=== PATIENT | female | born 1950 | race Caucasian/White ===

== ENCOUNTER 2023-09-05 10:47 | Emergency (ER) | payer MEDICARE, MEDICAID, SELFPAY ==
[2023-09-05] VITALS (7 sets, daily range): BP systolic 92–109; BP diastolic 51–56; PULSE 47–57; RESP 16; TEMP 36.8; O2SAT 97–98; BMI 20.7
--- NOTE | 2023-09-05 11:02 | DI.CT.S_ITS ---
PROCEDURE: CT HEAD/BRAIN WO CON INDICATIONS: Fall onto gravel with facial abrasions on blood thinner TECHNIQUE: Noncontrast 4.5 mm thick angled axial sections acquired from the foramen magnum to the vertex, with coronal and sagittal reformats. For radiation dose reduction, the following was used: automated exposure control, adjustment of mA and/or kV according to patient size. COMPARISON: [facility], CT, CT HEAD WITHOUT CONTRAST, 05/10/2023, 20:41. FINDINGS: Image quality: Good CSF spaces: Basal cisterns are patent. Lateral ventricles are symmetric. Volume: Vascular calcifications. 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 Volume loss is present. These findings are Brain: No intracranial hemorrhage. Lomeli-white differentiation is grossly maintained. Craniofacial structures: No displaced fracture. Sinuses are clear. Orbits are intact. IMPRESSION: No acute intracranial pathology. Dictated by: Quan Frazier M.D. on 09/05/2023 at 11:27 Approved by: Quan Frazier M.D. on 09/05/2023 at 11:28
--- NOTE | 2023-09-05 11:02 | DI.CT.S_ITS ---
PROCEDURE: CT CERVICAL SPINE WO CON INDICATIONS: Fall onto gravel with facial abrasions on blood thinner TECHNIQUE: Noncontrast 3 mm thick sections acquired from the skull base to the T4 level. Sagittal and coronal reformats were then constructed. For radiation dose reduction, the following was used: automated exposure control, adjustment of mA and/or kV according to patient size. COMPARISON: [facility], CT, CT CERVICAL SPINE WITHOUT CONTRAST, 05/10/2023, 20:41. FINDINGS: Image quality: Good Bones: [id number] degenerative changes. Vertebral body heights are well maintained. No traumatic subluxation. Soft tissues: No pathologic prevertebral soft tissue swelling. No apical pneumothorax. Vascular calcifications. No thyroid nodules. IMPRESSION: No acute fracture or traumatic subluxation of the cervical spine. [id number] degenerative changes. If there is high concern for further derangement, consider MRI evaluation. Dictated by: Quan Frazier M.D. on 09/05/2023 at 11:29 Approved by: Quan Frazier M.D. on 09/05/2023 at 11:30
--- NOTE | 2023-09-05 11:40 | ED_ITS ---
HPI - Fall General Chief Complaint: Fall Stated Complaint: fall Time Seen by Provider: 09/05/23 11:02 Source: patient Mode of arrival: Ambulatory History of Present Illness HPI Narrative: 72-year-old female anticoagulated on Eliquis here with a ground level fall and head injury. Tripped over somebody dog struck the right side of her face. No loss of consciousness no vomiting did have a little bit of nausea which is now better. Does not have any numbness or weakness in her extremities no neck pain and no pain elsewhere. Related Data Allergies Allergy/AdvReac Type Severity Reaction Status Date / Time egg Allergy Verified 09/05/23 10:59 Patient History Social History Smoking Status: Former smoker Smoking Status: Former smoker Substance Use Type: does not use Exam Initial Vital Signs Initial Vital Signs: Vital Signs Temperature 98.2 F 09/05/23 10:51 Pulse Rate 57 L 09/05/23 10:51 Respiratory Rate 16 09/05/23 10:51 Blood Pressure 101/51 L 09/05/23 10:51 Pulse Oximetry 98 09/05/23 10:51 Oxygen Delivery Method Room Air 09/05/23 10:51 Const General: cooperative and No acute distress [facility] Other: There are abrasions to the right cheek and there is a small nonsuturable laceration just under the chin on the right side as well as an abrasion of the chin. There is no scalp hematoma. There is no tenderness of the skull there is no tenderness of the cervical spine. Pupils are equal round and reactive extraocular movements are intact no malocclusion or facial instability Eyes Pupils: PERRL EOM: EOM intact bilaterally Neck Neck: full ROM, supple and other (No midline tenderness or step-off) Chest Chest: normal inspection of the chest and normal palpation of entire chest wall Resp Effort & Inspection: normal respiratory effort Cardio Rate: regular rate Skin General: no rashes or lesions noted Neuro Cranial Nerves: CN's II-XI intact bilaterally Speech: speech normal Motor: muscle tone normal throughout and strength 5/5 throughout Extrem Other: No extremity tenderness Course Orders Ordered: ED Orders 09/05/23 11:02 CT cervical spine wo con Stat CT head/brain wo con Stat Vital Signs Vital signs: Vital Signs - 8 hr 09/05/23 10:51 Temperature 98.2 F Pulse Rate 57 L Respiratory Rate 16 Blood Pressure 101/51 L Pulse Oximetry 98 Oxygen Delivery Method Room Air MDM - Fall Imaging Data CT scan - head: My Impression: No acute injury on my independent review Radiologist's Impression: No acute CT - cervical spine: My Impression: Independently reviewed no acute fracture Radiologist's Impression: No acute fracture MDM Narrative Medical decision making narrative: 72-year-old female anticoagulated with a ground level fall and minor head injury. Mental status is intact. Imaging is negative for intracranial injury, imaging is negative for sudden spine injury, examination is otherwise reassuring. She is discharged home Discharge Plan Departure Patient Disposition: Home Clinical Impression: Head injury Qualifiers: Encounter type: initial encounter Qualified Code(s): S09.90XA - Unspecified injury of head, initial encounter Fall Qualifiers: Encounter type: initial encounter Qualified Code(s): W19.XXXA - Unspecified fall, initial encounter Chin laceration Qualifiers: Encounter type: initial encounter Qualified Code(s): S01.81XA - Laceration without foreign body of other part of head, initial encounter Instructions: How to Prevent Falls Activity Restrictions/Additional Instructions: Examination and imaging are reassuring today, it does not appear that you suffered a serious head injury. Since you are on a blood thinner, if you are having increasing headaches vomiting or unsteadiness you should return to the emergency department for a recheck. It is possible to have a delayed presentation of bleeding around the brain. May use Tylenol as needed for pain. We put Steri-Strips on your chin, leave this on until it peels off by itself. Referrals: Janine Hollingsworth, [employer] [Primary Care Provider] - Stand Alone Forms: Patient Portal/API
== END 2023-09-05 12:10 | disposition home or self-care (01) ==
PROVIDERS: Emergency Provider Emergency Medicine; PCP Nurse Practitioner
DX: S09.90XA Unspecified injury of head, initial encounter (principal); S01.81XA Laceration without foreign body of other part of head, initial encounter; Z79.01 Long term (current) use of anticoagulants; W01.10XA Fall on same level from slipping, tripping and stumbling with subsequent striking against unspecified object, initial encounter
CPT/HCPCS: 70450; 72125; 99281; 99283

== ENCOUNTER 2023-09-17 10:24 | Emergency (ER) | payer MEDICARE, MEDICAID, SELFPAY ==
[2023-09-17] VITALS (30 sets, daily range): BP systolic 86–182; BP diastolic 46–93; PULSE 43–100; RESP 12–28; TEMP 36.7; O2SAT 96–100; BMI 21.5
[2023-09-17 11:11] LABS: Add Manual Diff / Slide Review NO; Basophils Absolute Auto 0 /uL (0-100); Basophils Percent Auto 0.6 % (0-2); Eosinophils Absolute Auto 100 /uL (0-450); Eosinophils Percent Auto 1.7 % (2-4); Hematocrit 34.9 % (36-46); Hemoglobin 11.8 g/dL (12.0-16.0); Lymphocytes Absolute Auto 1000 /uL (1100-4500); Mean Corpuscular HGB Conc 33.8 % (30-36); Mean Corpuscular Hemoglobin 31.6 PG (26-34); Mean Corpuscular Volume 93.4 fL (80-100); Monocytes Absolute Auto 500 /uL (0-900); Monocytes Percent Auto 8.9 % (3-14); Neutrophils Absolute Auto 4400 /uL (1500-7000); Neutrophils Percent Auto 72.8 % (50-75); Platelet Count 215 X10^3/uL (150-400); Red Blood Cell Count 3.73 X10^6/uL (4.0-5.2); Red Cell Distribution Width 13.7 % (11.6-14.8); White Blood Cell Count 6.1 X10^3/uL (4.5-11.0)
--- NOTE | 2023-09-17 11:16 | ED_ITS ---
HPI - General Adult <Hemant Marin DO - Last Filed: 09/18/23 09:03> General Chief complaint: Toxicology Problem Stated complaint: sent over by PCP lithium toxicity Time Seen by Provider: 09/17/23 10:51 Source: patient Mode of arrival: Ambulatory History of Present Illness HPI narrative: 72-year-old female with history of bipolar, relatively recent suicidal attempt and hospitalization at [facility], prior myocardial infarction, hypertension, hyperlipidemia presents to the emergency department at the request of her primary care provider for evaluation of trouble with speech and ambulation for the past week. She is not activated as a code stroke as her symptoms have been going for about 1 week. She states that she has had trouble finding words not necessarily with slurring. Also she states that she has been stumbling when she walks and feels like the left side of her body might be more weak than the right. She was seen and evaluated here on September 05 with a fall resulting in a chin laceration and had normal imaging. She denies fever or chills, no nausea, vomiting or diarrhea, no change in medications or diet Related Data Home Medications Medication Instructions Recorded Confirmed apixaban 2.5 mg tablet (Eliquis) 2.5 mg PO BID 09/17/23 09/17/23 atorvastatin 10 mg tablet 5 mg PO DAILY 09/17/23 09/17/23 benztropine 1 mg tablet 1 mg PO 3XD 09/17/23 09/17/23 citalopram 20 mg tablet 20 mg PO DAILY 09/17/23 09/17/23 lithium carbonate 450 mg 900 mg PO ONCE PM 09/17/23 09/17/23 tablet,extended release losartan 25 mg tablet 12.5 mg PO DAILY 09/17/23 09/17/23 melatonin 5 mg tablet 5 mg PO ONCE PM PRN insomnia 09/17/23 09/17/23 olanzapine 10 mg tablet 10 mg PO ONCE PM 09/17/23 09/17/23 sennosides 8.6 mg tablet (senna) 17.2 mg PO BID 09/17/23 09/17/23 Allergies Allergy/AdvReac Type Severity Reaction Status Date / Time egg Allergy Verified 09/17/23 10:52 Review of Systems <DO Mingo Garcia Last Filed: 09/18/23 09:03> Review of Systems Narrative: GENERAL: See HPI HEENT: Denies sinus pain, ear pain, sore throat, difficulty swallowing, dizziness. RESPIRATORY: Denies dyspnea, cough, wheezing, hemoptysis, sputum. CARDIOVASCULAR: Denies chest pain, palpitations, orthopnea, edema, GASTROINTESTINAL: Denies nausea, vomiting, abdominal pain, diarrhea, constipation, melena. : Denies dysuria, frequency, incontinence, hematuria, urinary retention. MUSCULOSKELETAL: denies weakness, joint pain, or bony pain SKIN: Denies rash, skin lesions, or other NEUROLOGIC: See HPI PSYCHIATRIC: No concerning psychosocial issues. 12 point review of systems is negative except for those stated above Patient History <Hemant Marin DO - Last Filed: 09/18/23 09:03> Medical History (Updated 09/17/23 @ 18:45 by Mony Louis MD) Chronic anticoagulation HTN (hypertension) Bipolar 1 disorder Social History Smoking Status: Former smoker Smoking Status: Former smoker Substance Use Type: does not use Exam <Hemant Marin DO - Last Filed: 09/18/23 09:03> Narrative Exam Narrative: GENERAL: [72] year old patient appears stated age. Well-developed patient, in mild distress. HEAD: Atraumatic. Normocephalic. EYES: Pupils equal round and reactive. Extraocular motions intact. No scleral icterus. No injection or drainage. ENT: Nose without bleeding, purulent drainage. Throat without erythema, tonsillar hypertrophy or exudate. Airway patent. NECK: Trachea midline. Non tender CARDIOVASCULAR: Regular rate and rhythm without murmurs, gallops, or rubs. RESPIRATORY: Clear to auscultation. Breath sounds equal bilaterally. No wheezes, rales, or rhonchi. GASTROINTESTINAL: Abdomen soft, non-tender, nondistended. EXTREMITIES: No edema or joint tenderness. BACK: Nontender without deformity or crepitance. No flank tenderness. NEURO: AOx3. SKIN: No rash or erythema of visible areas Initial Vital Signs Initial Vital Signs: Vital Signs Temperature 98.0 F 09/17/23 10:46 Pulse Rate 50 L 09/17/23 10:46 Respiratory Rate 18 09/17/23 10:46 Blood Pressure 92/46 L 09/17/23 10:46 Pulse Oximetry 98 09/17/23 10:46 Oxygen Delivery Method Room Air 09/17/23 10:46 <Mony Louis MD - Last Filed: 09/19/23 04:37> Initial Vital Signs Initial Vital Signs: Vital Signs Temperature 98.0 F 09/17/23 10:46 Pulse Rate 50 L 09/17/23 10:46 Respiratory Rate 18 09/17/23 10:46 Blood Pressure 92/46 L 09/17/23 10:46 Pulse Oximetry 98 09/17/23 10:46 Oxygen Delivery Method Room Air 09/17/23 10:46 <Mony Antonio DO - Last Filed: 09/18/23 18:10> Initial Vital Signs Initial Vital Signs: Vital Signs Temperature 98.0 F 09/17/23 10:46 Pulse Rate 50 L 09/17/23 10:46 Respiratory Rate 18 09/17/23 10:46 Blood Pressure 92/46 L 09/17/23 10:46 Pulse Oximetry 98 09/17/23 10:46 Oxygen Delivery Method Room Air 09/17/23 10:46 Scores <Hemant aMrin DO - Last Filed: 09/18/23 09:03> NIH Stroke Scale Level of Conciousness: Alert, keenly responsive Ask month/age: Answers both questions correctly. Open/close eyes, close hand: Performs both tasks correctly Best gaze horizontal: Normal Visual briggs: No visual loss Facial palsy: Normal symetrical movement Left arm drift: No drift for full 10 sec Right arm drift: No drift for full 10 sec Left leg drift: No drift for full 5 sec Right leg drift: No drift for full 5 sec Limb ataxia: Present in one limb Sensory on face/arms/legs: Normal, no sensory loss Best language: Mild to moderate, slurs some words Dysarthria: Normal Extinction or inattention: No abnormality Total NIH Stroke scale score: 2 <Mony Louis MD - Last Filed: 09/19/23 04:37> NIH Stroke Scale Total NIH Stroke scale score: 2 <Mony Antonio DO - Last Filed: 09/18/23 18:10> NIH Stroke Scale Total NIH Stroke scale score: 2 Course <Hemant Marin DO - Last Filed: 09/18/23 09:03> Orders Ordered: Discontinued Medications Apixaban (Apixaban 5 Mg Tablet) 2.5 mg PO NOW ONE Stop: 09/17/23 18:22 Last Admin: 09/17/23 20:38 Dose: 2.5 mg Documented By: SABRINA Apixaban (Apixaban 5 Mg Tablet) 2.5 mg PO BID [facility] Last Admin: 09/18/23 22:15 Dose: 2.5 mg Documented By: Admin: 09/18/23 08:03 Dose: 2.5 mg Documented By: DOUG Atorvastatin Calcium (Atorvastatin 20 Mg Tablet) 5 mg PO NOW ONE Stop: 09/18/23 07:25 Last Admin: 09/18/23 08:03 Dose: 5 mg Documented By: DOUG Citalopram Hydrobromide (Citalopram 10 Mg Tablet) 20 mg PO NOW ONE Stop: 09/18/23 07:25 Last Admin: 09/18/23 08:03 Dose: 20 mg Documented By: DOUG Sodium Chloride (Normal Saline 0.9%) 1,000 mls @ 1,000 mls/hr IV BOLUS ONE Stop: 09/17/23 11:53 Last Infusion: 09/17/23 13:08 Dose: Infused Documented By: Admin: 09/17/23 12:08 Dose: 1,000 mls/hr Documented By: DOUG Sodium Chloride (Normal Saline 0.9%) 1,000 mls @ 1,000 mls/hr IV BOLUS ONE Stop: 09/17/23 23:34 Last Infusion: 09/17/23 23:48 Dose: Infused Documented By: Admin: 09/17/23 22:40 Dose: 1,000 mls/hr Documented By: SABRINA Olanzapine (Olanzapine 2.5 Mg Tablet) 10 mg PO BEDTIME [facility] Last Admin: 09/18/23 22:15 Dose: 10 mg Documented By: Admin: 09/17/23 20:41 Dose: 10 mg Documented By: SABRINA Sennosides (Sennosides 8.6 Mg Tablet) 8.6 mg PO BEDTIME [facility] Last Admin: 09/18/23 22:15 Dose: 8.6 mg Documented By: RENNY Thiamine HCl (Thiamine 100 Mg Tablet) 100 mg PO NOW ONE Stop: 09/18/23 12:41 Last Admin: 09/18/23 13:28 Dose: 100 mg Documented By: RENNY Vital Signs Vital signs: Vital Signs - 8 hr 09/18/23 21:00 12/07/23 21:00 09/18/23 22:00 Temperature Pulse Rate 57 L 90 Respiratory Rate 17 20 Blood Pressure 126/59 L Pulse Oximetry Oxygen Delivery Method 09/18/23 22:15 09/18/23 22:15 09/18/23 22:19 Temperature 98.4 F Pulse Rate 61 62 Respiratory Rate 16 Blood Pressure 150/70 H 150/70 H Pulse Oximetry 96 97 Oxygen Delivery Method Room Air 09/18/23 23:00 09/19/23 00:00 09/19/23 01:00 Temperature Pulse Rate 55 L 50 L 45 L Respiratory Rate 20 12 15 Blood Pressure 147/71 H Pulse Oximetry Oxygen Delivery Method 09/19/23 02:00 09/19/23 03:00 09/19/23 03:10 Temperature Pulse Rate 43 L 48 L Respiratory Rate 15 17 Blood Pressure 154/72 H Pulse Oximetry Oxygen Delivery Method 09/19/23 03:10 Temperature Pulse Rate 55 L Respiratory Rate 18 Blood Pressure Pulse Oximetry 98 Oxygen Delivery Method <Mony Louis MD - Last Filed: 09/19/23 04:37> Orders Ordered: Discontinued Medications Apixaban (Apixaban 5 Mg Tablet) 2.5 mg PO NOW ONE Stop: 09/17/23 18:22 Last Admin: 09/17/23 20:38 Dose: 2.5 mg Documented By: SABRINA Apixaban (Apixaban 5 Mg Tablet) 2.5 mg PO BID [facility] Last Admin: 09/18/23 22:15 Dose: 2.5 mg Documented By: Admin: 09/18/23 08:03 Dose: 2.5 mg Documented By: DOUG Atorvastatin Calcium (Atorvastatin 20 Mg Tablet) 5 mg PO NOW ONE Stop: 09/18/23 07:25 Last Admin: 09/18/23 08:03 Dose: 5 mg Documented By: DOUG Citalopram Hydrobromide (Citalopram 10 Mg Tablet) 20 mg PO NOW ONE Stop: 09/18/23 07:25 Last Admin: 09/18/23 08:03 Dose: 20 mg Documented By: DOUG Sodium Chloride (Normal Saline 0.9%) 1,000 mls @ 1,000 mls/hr IV BOLUS ONE Stop: 09/17/23 11:53 Last Infusion: 09/17/23 13:08 Dose: Infused Documented By: Admin: 09/17/23 12:08 Dose: 1,000 mls/hr Documented By: DOUG Sodium Chloride (Normal Saline 0.9%) 1,000 mls @ 1,000 mls/hr IV BOLUS ONE Stop: 09/17/23 23:34 Last Infusion: 09/17/23 23:48 Dose: Infused Documented By: Admin: 09/17/23 22:40 Dose: 1,000 mls/hr Documented By: SABRINA Olanzapine (Olanzapine 2.5 Mg Tablet) 10 mg PO BEDTIME [facility] Last Admin: 09/18/23 22:15 Dose: 10 mg Documented By: Admin: 09/17/23 20:41 Dose: 10 mg Documented By: SABRINA Sennosides (Sennosides 8.6 Mg Tablet) 8.6 mg PO BEDTIME [facility] Last Admin: 09/18/23 22:15 Dose: 8.6 mg Documented By: RENNY Thiamine HCl (Thiamine 100 Mg Tablet) 100 mg PO NOW ONE Stop: 09/18/23 12:41 Last Admin: 09/18/23 13:28 Dose: 100 mg Documented By: RENNY Vital Signs Vital signs: Vital Signs - 8 hr 09/18/23 21:00 09/18/23 21:00 09/18/23 22:00 Temperature Pulse Rate 57 L 90 Respiratory Rate 17 20 Blood Pressure 126/59 L Pulse Oximetry Oxygen Delivery Method 09/18/23 22:15 09/18/23 22:15 09/18/23 22:19 Temperature 98.4 F Pulse Rate 61 62 Respiratory Rate 16 Blood Pressure 150/70 H 150/70 H Pulse Oximetry 96 97 Oxygen Delivery Method Room Air 09/18/23 23:00 09/19/23 00:00 09/19/23 01:00 Temperature Pulse Rate 55 L 50 L 45 L Respiratory Rate 20 12 15 Blood Pressure 147/71 H Pulse Oximetry Oxygen Delivery Method 09/19/23 02:00 09/19/23 03:00 09/19/23 03:10 Temperature Pulse Rate 43 L 48 L Respiratory Rate 15 17 Blood Pressure 154/72 H Pulse Oximetry Oxygen Delivery Method 09/19/23 03:10 Temperature Pulse Rate 55 L Respiratory Rate 18 Blood Pressure Pulse Oximetry 98 Oxygen Delivery Method <Mony Antonio DO - Last Filed: 09/18/23 18:10> Orders Ordered: Discontinued Medications Apixaban (Apixaban 5 Mg Tablet) 2.5 mg PO NOW ONE Stop: 09/17/23 18:22 Last Admin: 09/17/23 20:38 Dose: 2.5 mg Documented By: SABRINA Apixaban (Apixaban 5 Mg Tablet) 2.5 mg PO BID [facility] Last Admin: 09/18/23 22:15 Dose: 2.5 mg Documented By: Admin: 09/18/23 08:03 Dose: 2.5 mg Documented By: DOUG Atorvastatin Calcium (Atorvastatin 20 Mg Tablet) 5 mg PO NOW ONE Stop: 09/18/23 07:25 Last Admin: 09/18/23 08:03 Dose: 5 mg Documented By: DOUG Citalopram Hydrobromide (Citalopram 10 Mg Tablet) 20 mg PO NOW ONE Stop: 09/18/23 07:25 Last Admin: 09/18/23 08:03 Dose: 20 mg Documented By: DOUG Sodium Chloride (Normal Saline 0.9%) 1,000 mls @ 1,000 mls/hr IV BOLUS ONE Stop: 09/17/23 11:53 Last Infusion: 09/17/23 13:08 Dose: Infused Documented By: Admin: 09/17/23 12:08 Dose: 1,000 mls/hr Documented By: DOUG Sodium Chloride (Normal Saline 0.9%) 1,000 mls @ 1,000 mls/hr IV BOLUS ONE Stop: 09/17/23 23:34 Last Infusion: 09/17/23 23:48 Dose: Infused Documented By: Admin: 09/17/23 22:40 Dose: 1,000 mls/hr Documented By: SABRINA Olanzapine (Olanzapine 2.5 Mg Tablet) 10 mg PO BEDTIME [facility] Last Admin: 09/18/23 22:15 Dose: 10 mg Documented By: Admin: 09/17/23 20:41 Dose: 10 mg Documented By: SABRINA Sennosides (Sennosides 8.6 Mg Tablet) 8.6 mg PO BEDTIME [facility] Last Admin: 09/18/23 22:15 Dose: 8.6 mg Documented By: RENNY Thiamine HCl (Thiamine 100 Mg Tablet) 100 mg PO NOW ONE Stop: 09/18/23 12:41 Last Admin: 09/18/23 13:28 Dose: 100 mg Documented By: RENNY Vital Signs Vital signs: Vital Signs - 8 hr 09/18/23 21:00 09/18/23 21:00 09/18/23 22:00 Temperature Pulse Rate 57 L 90 Respiratory Rate 17 20 Blood Pressure 126/59 L Pulse Oximetry Oxygen Delivery Method 09/18/23 22:15 09/18/23 22:15 09/18/23 22:19 Temperature 98.4 F Pulse Rate 61 62 Respiratory Rate 16 Blood Pressure 150/70 H 150/70 H Pulse Oximetry 96 97 Oxygen Delivery Method Room Air 09/18/23 23:00 09/19/23 00:00 09/19/23 01:00 Temperature Pulse Rate 55 L 50 L 45 L Respiratory Rate 20 12 15 Blood Pressure 147/71 H Pulse Oximetry Oxygen Delivery Method 09/19/23 02:00 09/19/23 03:00 09/19/23 03:10 Temperature Pulse Rate 43 L 48 L Respiratory Rate 15 17 Blood Pressure 154/72 H Pulse Oximetry Oxygen Delivery Method 09/19/23 03:10 Temperature Pulse Rate 55 L Respiratory Rate 18 Blood Pressure Pulse Oximetry 98 Oxygen Delivery Method Medical Decision Making <Hemant Marin, DO - Last Filed: 09/18/23 09:03> Lab Data 09/18/23 07:45 09/18/23 07:45 Labs: Lab Results 09/17/23 09/17/23 09/17/23 Range/Units 11:00 12:10 13:24 WBC 6.1 (4.5-11.0) X10^3/uL RBC 3.73 L (4.0-5.2) X10^6/uL Hgb 11.8 L (12.0-16.0) g/dL Hct 34.9 L (36-46) % MCV 93.4 (80-100) fL MCH 31.6 (26-34) PG MCHC 33.8 (30-36) % RDW 13.7 (11.6-14.8) % Plt Count 215 (150-400) X10^3/uL Neut % (Auto) 72.8 (50-75) % Lymph % (Auto) 16.0 L (25-40) % [place] % (Auto) 8.9 (3-14) % Eos % (Auto) 1.7 L (2-4) % Baso % (Auto) 0.6 (0-2) % Neut # (Auto) 4400 (1756-7254) /uL Lymph # (Auto) 1000 L (5442-4128) /uL [place] # (Auto) 500 (0-900) /uL Eos # (Auto) 100 (0-450) /uL Baso # (Auto) 0 (0-100) /uL Sodium 135 L (137-145) mmol/L Potassium 4.6 (3.4-5.1) mmol/L Chloride 108 H (98-107) mmol/L Carbon Dioxide 22 (22-32) mmol/L BUN 18 H (7-17) mg/dL Creatinine 0.82 (0.52-1.04) mg/dL Estimated GFR > 60 (>60) mL/min BUN/Creatinine Ratio 22.0 (6-22) Glucose 92 (80-110) mg/dL Calcium 9.6 (8.4-10.2) mg/dL Magnesium 2.4 H (1.6-2.3) mg/dL Total Bilirubin 0.6 (0.2-1.3) mg/dL AST 47 H (14-36) IU/L ALT 60 H (<35) IU/L Alkaline Phosphatase 121 (38-126) U/L Total Creatine Kinase (30-135) U/L Total Protein 6.9 (6.3-8.2) g/dL Albumin 3.9 (3.5-5.0) g/dL Globulin 3.0 (1.7-4.1) g/dL Albumin/Globulin Ratio 1.3 (1.0-2.8) Vitamin B12 (239-931) pg/mL TSH (0.47-4.68) uIU/mL Urine Color Yellow Urine Appearance Clear Urine pH 6.5 (4.5-8.0) Ur Specific [place] <=1.005 (1.000-1.035) Urine Protein Negative (Negative) Urine Glucose (UA) Negative (Negative) g/dL Urine Ketones Negative (NEGATIVE) Urine Occult Blood Negative (Negative) Urine Nitrate Negative (Negative) Urine Bilirubin Negative (NEGATIVE) Urine Urobilinogen 1.0 (0.2) E.U./dL Ur Leukocyte Esterase Negative (NEGATIVE) Urine RBC None seen (0-5/HPF) Urine WBC None seen (0-5/HPF) Ur Squamous Epith Cells 0-1 /hpf (0-5/HPF) Urine Bacteria None seen (None) Ur Culture Indicated? Cult not indicated Salicylates < 1.0 (<20) mg/dL U Opiates 300ng/mL cut Negative (Negative) Ur Oxycodone Screen Negative (Negative) Urine Methadone Screen Negative (Negative) Ur Barbiturates Screen Negative (Negative) U Tricyclic Antidepress Negative (Negative) Ur Phencyclidine Scrn Negative (Negative) Ur Amphetamines Screen Negative (Negative) U Methamphetamines Scrn Negative (Negative) Ur MDMA Scrn (Ecstasy) Negative (Negative) U Benzodiazepines Scrn Negative (Negative) [place] 1.5 H (0.6-1.2) mmol/L Urine Cocaine Screen Negative (Negative) U Marijuana (THC) Screen Negative (Negative) Ethyl Alcohol < 10 ( - 10) mg/dL 09/18/23 Range/Units 07:45 WBC 5.7 (4.5-11.0) X10^3/uL RBC 3.64 L (4.0-5.2) X10^6/uL Hgb 11.5 L (12.0-16.0) g/dL Hct 34.2 L (36-46) % MCV 94.0 (80-100) fL MCH 31.7 (26-34) PG MCHC 33.7 (30-36) % RDW 14.3 (11.6-14.8) % Plt Count 204 (150-400) X10^3/uL Neut % (Auto) 63.1 (50-75) % Lymph % (Auto) 24.2 L (25-40) % [place] % (Auto) 9.5 (3-14) % Eos % (Auto) 2.5 (2-4) % Baso % (Auto) 0.7 (0-2) % Neut # (Auto) 3600 (9395-6229) /uL Lymph # (Auto) 1400 (3646-5061) /uL [place] # (Auto) 500 (0-900) /uL Eos # (Auto) 100 (0-450) /uL Baso # (Auto) 0 (0-100) /uL Sodium 138 (137-145) mmol/L Potassium 4.7 (3.4-5.1) mmol/L Chloride 111 H (98-107) mmol/L Carbon Dioxide 22 (22-32) mmol/L BUN 14 (7-17) mg/dL Creatinine 0.82 (0.52-1.04) mg/dL Estimated GFR > 60 (>60) mL/min BUN/Creatinine Ratio 17.1 (6-22) Glucose 104 (80-110) mg/dL Calcium 9.3 (8.4-10.2) mg/dL Magnesium 2.3 (1.6-2.3) mg/dL Total Bilirubin 0.7 (0.2-1.3) mg/dL AST 38 H (14-36) IU/L ALT 52 H (<35) IU/L Alkaline Phosphatase 124 (38-126) U/L Total Creatine Kinase 47 (30-135) U/L Total Protein 6.3 (6.3-8.2) g/dL Albumin 3.5 (3.5-5.0) g/dL Globulin 2.8 (1.7-4.1) g/dL Albumin/Globulin Ratio 1.3 (1.0-2.8) Vitamin B12 557 (239-931) pg/mL TSH 4.07 (0.47-4.68) uIU/mL Urine Color Urine Appearance Urine pH (4.5-8.0) Ur Specific [place] (1.000-1.035) Urine Protein (Negative) Urine Glucose (UA) (Negative) g/dL Urine Ketones (NEGATIVE) Urine Occult Blood (Negative) Urine Nitrate (Negative) Urine Bilirubin (NEGATIVE) Urine Urobilinogen (0.2) E.U./dL Ur Leukocyte Esterase (NEGATIVE) Urine RBC (0-5/HPF) Urine WBC (0-5/HPF) Ur Squamous Epith Cells (0-5/HPF) Urine Bacteria (None) Ur Culture Indicated? Salicylates (<20) mg/dL U Opiates 300ng/mL cut (Negative) Ur Oxycodone Screen (Negative) Urine Methadone Screen (Negative) Ur Barbiturates Screen (Negative) U Tricyclic Antidepress (Negative) Ur Phencyclidine Scrn (Negative) Ur Amphetamines Screen (Negative) U Methamphetamines Scrn (Negative) Ur MDMA Scrn (Ecstasy) (Negative) U Benzodiazepines Scrn (Negative) [place] 1.1 (0.6-1.2) mmol/L Urine Cocaine Screen (Negative) U Marijuana (THC) Screen (Negative) Ethyl Alcohol ( - 10) mg/dL MDM Narrative Medical decision making narrative: CC: 72-year-old female with shuffling gait, ataxia trouble with speech Complicating co-morbidities: Bipolar, recent hospitalization Data collected from: Patient Medical records reviewed: Prior notes reviewed in our EMR Differential considered, but not limited to: Stroke versus metabolic or toxic encephalopathy versus other Exam documented above, pertinent findings include: Alert and oriented, expressive aphasia, mild resting tremor Lab Test results independently reviewed as above. Pertinent findings: No leukocytosis or left shift, minimal elevation in LFTs, AST 47, ALT 60, urine without signs of infection, U tox pending, lithium 1.5 Independently reviewed EKG as above Imaging studies independently reviewed: CT of the head, CTA head and neck, MRI all without significant acute findings Scores Used: NIHSS 2 Consultations: discussed in depth with hospitalist who has reviewed clinical course and recent hospitalization, also contact with local psych. Both recommend admission at [facility] given continuity of care and greater access to psychiatry 09/18/23 0700 - Patient monitored overnight, no events noted. No available beds at [facility] overnight but reported hopeful there will be an availability in the [facility]. Care signed to Dr. Antonio at 0700 <Mony Louis MD - Last Filed: 09/19/23 04:37> Lab Data Labs: Lab Results 09/17/23 09/17/23 09/17/23 Range/Units 11:00 12:10 13:24 WBC 6.1 (4.5-11.0) X10^3/uL RBC 3.73 L (4.0-5.2) X10^6/uL Hgb 11.8 L (12.0-16.0) g/dL Hct 34.9 L (36-46) % MCV 93.4 (80-100) fL MCH 31.6 (26-34) PG MCHC 33.8 (30-36) % RDW 13.7 (11.6-14.8) % Plt Count 215 (150-400) X10^3/uL Neut % (Auto) 72.8 (50-75) % Lymph % (Auto) 16.0 L (25-40) % [place] % (Auto) 8.9 (3-14) % Eos % (Auto) 1.7 L (2-4) % Baso % (Auto) 0.6 (0-2) % Neut # (Auto) 4400 (1389-0528) /uL Lymph # (Auto) 1000 L (8635-1335) /uL [place] # (Auto) 500 (0-900) /uL Eos # (Auto) 100 (0-450) /uL Baso # (Auto) 0 (0-100) /uL Sodium 135 L (137-145) mmol/L Potassium 4.6 (3.4-5.1) mmol/L Chloride 108 H (98-107) mmol/L Carbon Dioxide 22 (22-32) mmol/L BUN 18 H (7-17) mg/dL Creatinine 0.82 (0.52-1.04) mg/dL Estimated GFR > 60 (>60) mL/min BUN/Creatinine Ratio 22.0 (6-22) Glucose 92 (80-110) mg/dL Calcium 9.6 (8.4-10.2) mg/dL Magnesium 2.4 H (1.6-2.3) mg/dL Total Bilirubin 0.6 (0.2-1.3) mg/dL AST 47 H (14-36) IU/L ALT 60 H (<35) IU/L Alkaline Phosphatase 121 (38-126) U/L Total Creatine Kinase (30-135) U/L Total Protein 6.9 (6.3-8.2) g/dL Albumin 3.9 (3.5-5.0) g/dL Globulin 3.0 (1.7-4.1) g/dL Albumin/Globulin Ratio 1.3 (1.0-2.8) Vitamin B12 (239-931) pg/mL TSH (0.47-4.68) uIU/mL Urine Color Yellow Urine Appearance Clear Urine pH 6.5 (4.5-8.0) Ur Specific [place] <=1.005 (1.000-1.035) Urine Protein Negative (Negative) Urine Glucose (UA) Negative (Negative) g/dL Urine Ketones Negative (NEGATIVE) Urine Occult Blood Negative (Negative) Urine Nitrate Negative (Negative) Urine Bilirubin Negative (NEGATIVE) Urine Urobilinogen 1.0 (0.2) E.U./dL Ur Leukocyte Esterase Negative (NEGATIVE) Urine RBC None seen (0-5/HPF) Urine WBC None seen (0-5/HPF) Ur Squamous Epith Cells 0-1 /hpf (0-5/HPF) Urine Bacteria None seen (None) Ur Culture Indicated? Cult not indicated Salicylates < 1.0 (<20) mg/dL U Opiates 300ng/mL cut Negative (Negative) Ur Oxycodone Screen Negative (Negative) Urine Methadone Screen Negative (Negative) Ur Barbiturates Screen Negative (Negative) U Tricyclic Antidepress Negative (Negative) Ur Phencyclidine Scrn Negative (Negative) Ur Amphetamines Screen Negative (Negative) U Methamphetamines Scrn Negative (Negative) Ur MDMA Scrn (Ecstasy) Negative (Negative) U Benzodiazepines Scrn Negative (Negative) [place] 1.5 H (0.6-1.2) mmol/L Urine Cocaine Screen Negative (Negative) U Marijuana (THC) Screen Negative (Negative) Ethyl Alcohol < 10 ( - 10) mg/dL 09/18/23 Range/Units 07:45 WBC 5.7 (4.5-11.0) X10^3/uL RBC 3.64 L (4.0-5.2) X10^6/uL Hgb 11.5 L (12.0-16.0) g/dL Hct 34.2 L (36-46) % MCV 94.0 (80-100) fL MCH 31.7 (26-34) PG MCHC 33.7 (30-36) % RDW 14.3 (11.6-14.8) % Plt Count 204 (150-400) X10^3/uL Neut % (Auto) 63.1 (50-75) % Lymph % (Auto) 24.2 L (25-40) % [place] % (Auto) 9.5 (3-14) % Eos % (Auto) 2.5 (2-4) % Baso % (Auto) 0.7 (0-2) % Neut # (Auto) 3600 (0011-7333) /uL Lymph # (Auto) 1400 (6513-4188) /uL [place] # (Auto) 500 (0-900) /uL Eos # (Auto) 100 (0-450) /uL Baso # (Auto) 0 (0-100) /uL Sodium 138 (137-145) mmol/L Potassium 4.7 (3.4-5.1) mmol/L Chloride 111 H (98-107) mmol/L Carbon Dioxide 22 (22-32) mmol/L BUN 14 (7-17) mg/dL Creatinine 0.82 (0.52-1.04) mg/dL Estimated GFR > 60 (>60) mL/min BUN/Creatinine Ratio 17.1 (6-22) Glucose 104 (80-110) mg/dL Calcium 9.3 (8.4-10.2) mg/dL Magnesium 2.3 (1.6-2.3) mg/dL Total Bilirubin 0.7 (0.2-1.3) mg/dL AST 38 H (14-36) IU/L ALT 52 H (<35) IU/L Alkaline Phosphatase 124 (38-126) U/L Total Creatine Kinase 47 (30-135) U/L Total Protein 6.3 (6.3-8.2) g/dL Albumin 3.5 (3.5-5.0) g/dL Globulin 2.8 (1.7-4.1) g/dL Albumin/Globulin Ratio 1.3 (1.0-2.8) Vitamin B12 557 (239-931) pg/mL TSH 4.07 (0.47-4.68) uIU/mL Urine Color Urine Appearance Urine pH (4.5-8.0) Ur Specific [place] (1.000-1.035) Urine Protein (Negative) Urine Glucose (UA) (Negative) g/dL Urine Ketones (NEGATIVE) Urine Occult Blood (Negative) Urine Nitrate (Negative) Urine Bilirubin (NEGATIVE) Urine Urobilinogen (0.2) E.U./dL Ur Leukocyte Esterase (NEGATIVE) Urine RBC (0-5/HPF) Urine WBC (0-5/HPF) Ur Squamous Epith Cells (0-5/HPF) Urine Bacteria (None) Ur Culture Indicated? Salicylates (<20) mg/dL U Opiates 300ng/mL cut (Negative) Ur Oxycodone Screen (Negative) Urine Methadone Screen (Negative) Ur Barbiturates Screen (Negative) U Tricyclic Antidepress (Negative) Ur Phencyclidine Scrn (Negative) Ur Amphetamines Screen (Negative) U Methamphetamines Scrn (Negative) Ur MDMA Scrn (Ecstasy) (Negative) U Benzodiazepines Scrn (Negative) [place] 1.1 (0.6-1.2) mmol/L Urine Cocaine Screen (Negative) U Marijuana (THC) Screen (Negative) Ethyl Alcohol ( - 10) mg/dL MDM Narrative Medical decision making narrative: CC: 72-year-old female with shuffling gait, ataxia trouble with speech Complicating co-morbidities: Bipolar, recent hospitalization Data collected from: Patient Medical records reviewed: Prior notes reviewed in our EMR Differential considered, but not limited to: Stroke versus metabolic or toxic encephalopathy versus other Exam documented above, pertinent findings include: Alert and oriented, expressive aphasia, mild resting tremor Lab Test results independently reviewed as above. Pertinent findings: No leukocytosis or left shift, minimal elevation in LFTs, AST 47, ALT 60, urine without signs of infection, U tox pending, lithium 1.5 Independently reviewed EKG as above Imaging studies independently reviewed: CT of the head, CTA head and neck, MRI all without significant acute findings Scores Used: NIHSS 2 Consultations: discussed in depth with hospitalist who has reviewed clinical course and recent hospitalization, also contact with local psych. Both recommend admission at [facility] given continuity of care and greater access to psychiatry 09/18/23 0700 - Patient monitored overnight, no events noted. No available beds at [facility] overnight but reported hopeful there will be an availability in the [facility]. Care signed to Dr. Antonio at 0700 09/18/23 Paco: Patient signed out to myself by Dr. Louis. Patient seen independently evaluated by myself alert oriented expressive aphasia and mild tremor on examination. Patient's labs and imaging were reviewed patient had negative MRI, NIH of 2. Patient does have psychiatric history lithium was mildly elevated at 1.5. Labs were repeated today are overall stable and lithium is decreased from 1.5-1.1 with liver enzymes very mildly elevated yesterday decreased today. Patient does not have any additional complaints currently her lithium dose was held but she did receive her morning medications. Plan at this time is for patient to be transferred for facility with psych and Neurology for further evaluation. Recommendation was for [facility] for continuity of care. [facility] has not had any availability. Calls were made out to other facilities. Spoke with Neurology at [facility] feels patient is appropriate for transfer notes that lithium toxicity can be little bit delayed and she was elevated in the 2 range 15 of September. He does recommend continue hold lithium, add on TSH and B12 and CK level to evaluate for any potential seizure as well as give thiamine 100 mg. Recommends plan for EEG which we do not have available here and neuro checks q.4 to evaluate for any seizure activity. They do note that if her mentation clears completely may change plan to be more outpatient but if she is having persistent symptoms plan to continue with transfer. Spoke with hospitalist, Dr. Garcia at [facility] reviewed findings workup thus far and the recommendations from neurology. Accepts for transfer. They state unlikely to have a bed today. Patient signed out to Dr. Louis while awaiting bed assignment. Patient has not had any events today. 09/19/23 (Heriberto) -care of patient is signed out to me by outgoing provider. No events overnight, bed became available at [facility] and she was transported via BLS service to outside hospital in stable condition. <Mony Antonio DO - Last Filed: 09/18/23 18:10> Lab Data Labs: Lab Results 09/17/23 09/17/23 09/17/23 Range/Units 11:00 12:10 13:24 WBC 6.1 (4.5-11.0) X10^3/uL RBC 3.73 L (4.0-5.2) X10^6/uL Hgb 11.8 L (12.0-16.0) g/dL Hct 34.9 L (36-46) % MCV 93.4 (80-100) fL MCH 31.6 (26-34) PG MCHC 33.8 (30-36) % RDW 13.7 (11.6-14.8) % Plt Count 215 (150-400) X10^3/uL Neut % (Auto) 72.8 (50-75) % Lymph % (Auto) 16.0 L (25-40) % [place] % (Auto) 8.9 (3-14) % Eos % (Auto) 1.7 L (2-4) % Baso % (Auto) 0.6 (0-2) % Neut # (Auto) 4400 (7257-0035) /uL Lymph # (Auto) 1000 L (5531-6152) /uL [place] # (Auto) 500 (0-900) /uL Eos # (Auto) 100 (0-450) /uL Baso # (Auto) 0 (0-100) /uL Sodium 135 L (137-145) mmol/L Potassium 4.6 (3.4-5.1) mmol/L Chloride 108 H (98-107) mmol/L Carbon Dioxide 22 (22-32) mmol/L BUN 18 H (7-17) mg/dL Creatinine 0.82 (0.52-1.04) mg/dL Estimated GFR > 60 (>60) mL/min BUN/Creatinine Ratio 22.0 (6-22) Glucose 92 (80-110) mg/dL Calcium 9.6 (8.4-10.2) mg/dL Magnesium 2.4 H (1.6-2.3) mg/dL Total Bilirubin 0.6 (0.2-1.3) mg/dL AST 47 H (14-36) IU/L ALT 60 H (<35) IU/L Alkaline Phosphatase 121 (38-126) U/L Total Creatine Kinase (30-135) U/L Total Protein 6.9 (6.3-8.2) g/dL Albumin 3.9 (3.5-5.0) g/dL Globulin 3.0 (1.7-4.1) g/dL Albumin/Globulin Ratio 1.3 (1.0-2.8) Vitamin B12 (239-931) pg/mL TSH (0.47-4.68) uIU/mL Urine Color Yellow Urine Appearance Clear Urine pH 6.5 (4.5-8.0) Ur Specific [place] <=1.005 (1.000-1.035) Urine Protein Negative (Negative) Urine Glucose (UA) Negative (Negative) g/dL Urine Ketones Negative (NEGATIVE) Urine Occult Blood Negative (Negative) Urine Nitrate Negative (Negative) Urine Bilirubin Negative (NEGATIVE) Urine Urobilinogen 1.0 (0.2) E.U./dL Ur Leukocyte Esterase Negative (NEGATIVE) Urine RBC None seen (0-5/HPF) Urine WBC None seen (0-5/HPF) Ur Squamous Epith Cells 0-1 /hpf (0-5/HPF) Urine Bacteria None seen (None) Ur Culture Indicated? Cult not indicated Salicylates < 1.0 (<20) mg/dL U Opiates 300ng/mL cut Negative (Negative) Ur Oxycodone Screen Negative (Negative) Urine Methadone Screen Negative (Negative) Ur Barbiturates Screen Negative (Negative) U Tricyclic Antidepress Negative (Negative) Ur Phencyclidine Scrn Negative (Negative) Ur Amphetamines Screen Negative (Negative) U Methamphetamines Scrn Negative (Negative) Ur MDMA Scrn (Ecstasy) Negative (Negative) U Benzodiazepines Scrn Negative (Negative) [place] 1.5 H (0.6-1.2) mmol/L Urine Cocaine Screen Negative (Negative) U Marijuana (THC) Screen Negative (Negative) Ethyl Alcohol < 10 ( - 10) mg/dL 09/18/23 Range/Units 07:45 WBC 5.7 (4.5-11.0) X10^3/uL RBC 3.64 L (4.0-5.2) X10^6/uL Hgb 11.5 L (12.0-16.0) g/dL Hct 34.2 L (36-46) % MCV 94.0 (80-100) fL MCH 31.7 (26-34) PG MCHC 33.7 (30-36) % RDW 14.3 (11.6-14.8) % Plt Count 204 (150-400) X10^3/uL Neut % (Auto) 63.1 (50-75) % Lymph % (Auto) 24.2 L (25-40) % [place] % (Auto) 9.5 (3-14) % Eos % (Auto) 2.5 (2-4) % Baso % (Auto) 0.7 (0-2) % Neut # (Auto) 3600 (0867-6032) /uL Lymph # (Auto) 1400 (2697-5877) /uL [place] # (Auto) 500 (0-900) /uL Eos # (Auto) 100 (0-450) /uL Baso # (Auto) 0 (0-100) /uL Sodium 138 (137-145) mmol/L Potassium 4.7 (3.4-5.1) mmol/L Chloride 111 H (98-107) mmol/L Carbon Dioxide 22 (22-32) mmol/L BUN 14 (7-17) mg/dL Creatinine 0.82 (0.52-1.04) mg/dL Estimated GFR > 60 (>60) mL/min BUN/Creatinine Ratio 17.1 (6-22) Glucose 104 (80-110) mg/dL Calcium 9.3 (8.4-10.2) mg/dL Magnesium 2.3 (1.6-2.3) mg/dL Total Bilirubin 0.7 (0.2-1.3) mg/dL AST 38 H (14-36) IU/L ALT 52 H (<35) IU/L Alkaline Phosphatase 124 (38-126) U/L Total Creatine Kinase 47 (30-135) U/L Total Protein 6.3 (6.3-8.2) g/dL Albumin 3.5 (3.5-5.0) g/dL Globulin 2.8 (1.7-4.1) g/dL Albumin/Globulin Ratio 1.3 (1.0-2.8) Vitamin B12 557 (239-931) pg/mL TSH 4.07 (0.47-4.68) uIU/mL Urine Color Urine Appearance Urine pH (4.5-8.0) Ur Specific [place] (1.000-1.035) Urine Protein (Negative) Urine Glucose (UA) (Negative) g/dL Urine Ketones (NEGATIVE) Urine Occult Blood (Negative) Urine Nitrate (Negative) Urine Bilirubin (NEGATIVE) Urine Urobilinogen (0.2) E.U./dL Ur Leukocyte Esterase (NEGATIVE) Urine RBC (0-5/HPF) Urine WBC (0-5/HPF) Ur Squamous Epith Cells (0-5/HPF) Urine Bacteria (None) Ur Culture Indicated? Salicylates (<20) mg/dL U Opiates 300ng/mL cut (Negative) Ur Oxycodone Screen (Negative) Urine Methadone Screen (Negative) Ur Barbiturates Screen (Negative) U Tricyclic Antidepress (Negative) Ur Phencyclidine Scrn (Negative) Ur Amphetamines Screen (Negative) U Methamphetamines Scrn (Negative) Ur MDMA Scrn (Ecstasy) (Negative) U Benzodiazepines Scrn (Negative) [place] 1.1 (0.6-1.2) mmol/L Urine Cocaine Screen (Negative) U Marijuana (THC) Screen (Negative) Ethyl Alcohol ( - 10) mg/dL MDM Narrative Medical decision making narrative: CC: 72-year-old female with shuffling gait, ataxia trouble with speech Complicating co-morbidities: Bipolar, recent hospitalization Data collected from: Patient Medical records reviewed: Prior notes reviewed in our EMR Differential considered, but not limited to: Stroke versus metabolic or toxic encephalopathy versus other Exam documented above, pertinent findings include: Alert and oriented, expressive aphasia, mild resting tremor Lab Test results independently reviewed as above. Pertinent findings: No leukocytosis or left shift, minimal elevation in LFTs, AST 47, ALT 60, urine without signs of infection, U tox pending, lithium 1.5 Independently reviewed EKG as above Imaging studies independently reviewed: CT of the head, CTA head and neck, MRI all without significant acute findings Scores Used: NIHSS 2 Consultations: discussed in depth with hospitalist who has reviewed clinical course and recent hospitalization, also contact with local psych. Both recommend admission at [facility] given continuity of care and greater access to psychiatry 09/18/23 0700 - Patient monitored overnight, no events noted. No available beds at [facility] overnight but reported hopeful there will be an availability in the [facility]. Care signed to Dr. Antonio at 0700 09/18/23 [place]: Patient signed out to myself by Dr. Louis. Patient seen independently evaluated by myself alert oriented expressive aphasia and mild tremor on examination. Patient's labs and imaging were reviewed patient had negative MRI, NIH of 2. Patient does have psychiatric history lithium was mildly elevated at 1.5. Labs were repeated today are overall stable and lithium is decreased from 1.5-1.1 with liver enzymes very mildly elevated yesterday decreased today. Patient does not have any additional complaints currently her lithium dose was held but she did receive her morning medications. Plan at this time is for patient to be transferred for facility with psych and Neurology for further evaluation. Recommendation was for [facility] for continuity of care. [facility] has not had any availability. Calls were made out to other facilities. Spoke with Neurology at [facility] feels patient is appropriate for transfer notes that lithium toxicity can be little bit delayed and she was elevated in the 2 range 15 of September. He does recommend continue hold lithium, add on TSH and B12 and CK level to evaluate for any potential seizure as well as give thiamine 100 mg. Recommends plan for EEG which we do not have available here and neuro checks q.4 to evaluate for any seizure activity. They do note that if her mentation clears completely may change plan to be more outpatient but if she is having persistent symptoms plan to continue with transfer. Spoke with hospitalist, Dr. Gracia at [facility] reviewed findings workup thus far and the recommendations from neurology. Accepts for transfer. They state unlikely to have a bed today. Patient signed out to Dr. Louis while awaiting bed assignment. Patient has not had any events today. Discharge Plan Departure Patient Disposition: [facility] Clinical Impression: Slurred speech, Word finding difficulty Prescriptions: No Action atorvastatin 10 mg tablet 5 mg PO DAILY benztropine 1 mg tablet 1 mg PO 3XD sennosides [senna] 8.6 mg tablet 17.2 mg PO BID olanzapine 10 mg tablet 10 mg PO ONCE PM lithium carbonate 450 mg tablet extended release 900 mg PO ONCE PM citalopram 20 mg tablet 20 mg PO DAILY losartan 25 mg tablet 12.5 mg PO DAILY melatonin 5 mg tablet 5 mg PO ONCE PM PRN (Reason: insomnia) Eliquis 2.5 mg tablet 2.5 mg PO BID Referrals: Janine Hollingsworth ARNP [Primary Care Provider] -
[2023-09-17 11:31] LABS: Alanine Aminotransferase 60 IU/L (<35); Albumin 3.9 g/dL (3.5-5.0); Albumin Globulin Ratio 1.3 (1.0-2.8); Alkaline Phosphatase 121 U/L (38-126); Aspartate Aminotransferase 47 IU/L (14-36); Bilirubin Total 0.6 mg/dL (0.2-1.3); Blood Urea Nitrogen 18 mg/dL (7-17); Calcium 9.6 mg/dL (8.4-10.2); Carbon Dioxide 22 mmol/L (22-32); Chloride 108 mmol/L (98-107); Estimated Glomerular Filt Rate > 60 mL/min (>60); Glucose 92 mg/dL (80-110); HEMOLYSIS < 15 (0-50); Magnesium 2.4 mg/dL (1.6-2.3); Potassium 4.6 mmol/L (3.4-5.1); Sodium 135 mmol/L (137-145); Total Protein 6.9 g/dL (6.3-8.2)
--- NOTE | 2023-09-17 11:31 | DI.CT.S_ITS ---
PROCEDURE: CT HEAD/BRAIN WO CON INDICATIONS: stroke, NOT TPA TECHNIQUE: Noncontrast 4.5 mm thick angled axial sections acquired from the foramen magnum to the vertex, with coronal and sagittal reformats. For radiation dose reduction, the following was used: automated exposure control, adjustment of mA and/or kV according to patient size. COMPARISON: [facility], CT, CT HEAD/BRAIN WO CON, 09/05/2023, 11:10. FINDINGS: Image quality: Excellent. CSF spaces: Basal cisterns are patent. No extra-axial fluid collections. Ventricles are normal in size and shape. Brain: No midline shift. No intracranial masses or hemorrhage. [place]-white matter interface is normal. Skull and face: Calvarium and visualized facial bones are intact, without suspicious lesions. Sinuses: Visualized sinuses and mastoids are clear. IMPRESSION: No acute intracranial pathology. Approved by: Tyler Mukherjee M.D. on 09/17/2023 at 11:18
--- NOTE | 2023-09-17 11:31 | DI.CT.S_ITS ---
PROCEDURE: CT ANGIO HEAD AND NECK INDICATIONS: slurred speech, trouble ambulating TECHNIQUE: After the administration of intravenous contrast, 1 mm thick sections acquired from the aortic arch through the [place]. MIP reformats of the arterial vasculature were utilized. For radiation dose reduction, the following was used: automated exposure control, adjustment of mA and/or kV according to patient size. COMPARISON: None. FINDINGS: Cerebral CT Angiogram: Internal carotid arteries: No acute findings. Intracranial ICA are patent with no significant stenosis. No occlusion. No aneurysm. Anterior cerebral arteries: Unremarkable. No significant stenosis. No occlusion. No aneurysm. Middle cerebral arteries: Unremarkable. No significant stenosis. No occlusion. No aneurysm. Posterior cerebral arteries: Unremarkable. No significant stenosis. No occlusion. No aneurysm. Basilar artery: Unremarkable. No significant stenosis. No occlusion. No aneurysm. Vertebral arteries: Unremarkable as visualized. Dural venous sinuses: Unremarkable given phase of enhancement. Other: Arterial phase brain parenchyma is unremarkable. Neck CT Angiogram: Internal carotid arteries: Mild atherosclerotic plaque in both proximal internal carotid arteries without stenosis. Common carotid arteries: Unremarkable. No significant stenosis. No dissection or occlusion. External carotid arteries: Unremarkable. No occlusion. Vertebral arteries: Unremarkable. No significant stenosis. No dissection or occlusion. Other: None. Aortic Arch and Mediastinum: Partially visualized aortic arch unremarkable without evidence of aneurysm. Origins of the great vessels unremarkable. IMPRESSION: 1. Unremarkable CT angiogram head and neck without large vessel occlusion, aneurysm or vascular malformation Approved by: Tyler Mukherjee M.D. on 09/17/2023 at 11:42
[2023-09-17 11:41] LABS: Lithium 1.5 mmol/L (0.6-1.2)
[2023-09-17] MEDS: SODIUM CHLORIDE 0.9% 1,000 ML 1000 ML IV ×2 (12:08→22:40)
[2023-09-17 12:59] LABS: Appearance Urine UA CLEAR; Bilirubin Urine UA NEGATIVE (NEGATIVE); Color Urine UA YELLOW; Glucose Urine UA NEGATIVE (Negative); Ketones Urine UA NEGATIVE (NEGATIVE); Leukocyte Esterase Urine UA NEGATIVE (NEGATIVE); Nitrite Urine UA NEGATIVE (Negative); Occult Blood Urine UA NEGATIVE (Negative); Protein Urine UA NEGATIVE (Negative); Specific Gravity Urine UA <=1.005 (1.000-1.035)
[2023-09-17 13:06] LABS: pH Urine UA 6.5 (4.5-8.0)
--- NOTE | 2023-09-17 13:09 | DI.MRI.S_ITS ---
PROCEDURE: MR HEAD/BRAIN WO CON INDICATIONS: stroke eval TECHNIQUE: Non-contrast axial T1 spin echo, axial T2 fast spin echo, sagittal and axial FLAIR, coronal T2 fast spin echo, axial gradient echo, axial diffusion and ADC through the brain. COMPARISON: [facility], CT, CT ANGIO HEAD AND NECK, 09/17/2023, 11:53. [facility], CT, CT HEAD/BRAIN WO CON, 09/17/2023, 11:53. [facility], CT, CT CERVICAL SPINE WO CON, 09/05/2023, 11:10. [facility], CT, CT HEAD/BRAIN WO CON, 09/05/2023, 11:10. FINDINGS: Image quality: Excellent. CSF spaces: Ventricles appear symmetric in size and shape. Basal cisterns are patent. No extra-axial fluid collections. Brain: No intracranial bleeds or mass effects. There is cerebral volume loss for age. There are periventricular and deep white matter chronic small vessel ischemic changes. Brainstem appears normal. Diffusion-weighted images show no acute ischemic insults. No chronic ischemic insults. Normal intravascular flow voids are present. Skull and face: Calvarial bone marrow is normal in signal. Orbits are normal. Sinuses: Sinuses demonstrate scattered mucosal thickening. IMPRESSION: 1. No acute intracranial process. 2. Mild atrophy and chronic microvascular ischemic changes. Dictated by: Laury Vasquez M.D. on 09/17/2023 at 15:06 Approved by: Laury Vasquez M.D. on 09/17/2023 at 15:09
[2023-09-17 13:11] LABS: Bacteria Urine None Seen; RBC Urine None Seen (0-5/HPF); Squamous Epithelial Cell Urine 0-1 /HPF (0-5/HPF); WBC Urine None Seen (0-5/HPF)
[2023-09-17 13:12] LABS: Culture Indicated Urine Cult Not Indicated
[2023-09-17 13:33] LABS: Ethanol (ETOH) < 10 mg/dL; Salicylate < 1.0 mg/dL (<20)
--- NOTE | 2023-09-17 14:08 | PC.NURSE ---
Dr. Scott in talking with pt
--- NOTE | 2023-09-17 14:29 | P.CALLCOV_ITS ---
Call Coverage Note Note Date of Patient Contact: 09/17/23 Narrative of Care Provided: Full Consult or H&P to follow. This is a 72 year old female with PMH of Bipolar disorder with recent admission to [facility] for suicidal ideation where she took eliquis and hydroxyzine. During that admission she was showing psychosis with auditory hallucinations and adventist delusions. At the assessment it was also noted that she has been having some decline in her memory with concern for mild cognitive impairment. She was discharged on citalopram, aripiprazole, and lithium with improvement in her interactions but continued to have auditory hallucinations. In the past she has had difficulty with shaking, tremors, hallucinations. She came in with reported 1 week of difficulty speaking, and more frequent falls. She was in the process of trying to move to assisted living at [facility] since discharge a couple of weeks ago. She was urged to come to the ER to check lithium level by PCP. On my exam she does have some difficulty with word finding, but also a bilateral tremor. She casas s no focal weakness or numbness on exam. I recommend awaiting MRI results at this time, as I suspect less likely this is related to a stroke. My suspicion is for a medication side effect, or possibly an underlying neurological diagnosis such as parkinson's that has been being masked with her recent depression / SI. If MRI is positive we can admit here for further stroke evaluation and therapies. If MRI is negative, I would recommend reassessment of her psychiatric medications, ideally under the guidance of a psychiatrist given her recent admission for suicidal ideation, along with neurology for possible underlying neurological process. This may be able to be performed as an outpatient depending on specialty recommendations. Dishcarge medications from [facility] HIM: Zyprexa 10 mg at bedtime litium CR 900 at bedtime celexa 20 mg daily eliquis 2.5 mg BID losartan 12.5 mg daily.
[2023-09-17 16:56] LABS: UR Morphine/Opiate cutoff 300 Negative (Negative); Ur Creatinine Normal (Normal); Ur Specific Gravity Normal (Normal); Urine Amphetamines Negative (Negative); Urine Barbiturates Negative (Negative); Urine Benzodiazepines Negative (Negative); Urine Cocaine Negative (Negative); Urine MDMA Negative (Negative); Urine Methadone Negative (Negative); Urine Methamphetamines Negative (Negative); Urine Oxycodone Negative (Negative); Urine Phencyclidine Negative (Negative); Urine Tetrahydrocannabinol Negative (Negative); Urine Tricyclic Antidepressant Negative (Negative); Urine pH Normal (Normal)
--- NOTE | 2023-09-17 18:00 | PC.NURSE ---
Pt ate 100% of dinner
--- NOTE | 2023-09-17 18:08 | PM.CN ---
History of Present Illness Consult details Date Patient Seen: 09/17/23 Time Patient Seen: 15:00 Chief complaint: sent over by PCP lithium toxicity Requesting provider: Hemant Marin Narrative: This is a 72 year old female with PMH of Bipolar disorder, HTN, chronic anticoagulation (unknown why) with recent admission to [facility] for suicidal ideation where she took eliquis and hydroxyzine. During that admission she was showing psychosis with auditory hallucinations and mormon delusions. At the assessment it was also noted that she has been having some decline in her memory with concern for mild cognitive impairment. She was discharged on citalopram, aripiprazole, and lithium with improvement in her interactions but continued to have auditory hallucinations. In the past she has had difficulty with shaking, tremors, hallucinations. She came in with reported 1 week of difficulty speaking, and more frequent falls. She was in the process of trying to move to assisted living at [facility] since discharge a couple of weeks ago. She was urged to come to the ER to check lithium level by PCP. On my exam she does have some difficulty with word finding, but also a bilateral tremor. She has no focal weakness or numbness on exam. I recommend awaiting MRI results at this time, as I suspect less likely this is related to a stroke. MRI was indeed negative. Discussed with psychiatry provider here whom stated this is likely due to lithium toxicity. Recommended holding lithium, starting fluids, and checking lithium levels again until <1.0. With limited availability of psychiatry at [facility] (not available on weekends, evenings, and limited day availability) and this patient's recent psychiatric admission, our psychiatry provider recommended a center with additional access to psychiatry while her lithium is tapered off, as it is highly possible that she may have return of symptoms. Meds Home Medications and Allergies Home Medications Medication Instructions Recorded Confirmed Type apixaban 2.5 mg tablet (Eliquis) 2.5 mg PO BID 09/17/23 09/17/23 History atorvastatin 10 mg tablet 5 mg PO DAILY 09/17/23 09/17/23 History benztropine 1 mg tablet 1 mg PO 3XD 09/17/23 09/17/23 History citalopram 20 mg tablet 20 mg PO DAILY 09/17/23 09/17/23 History lithium carbonate 450 mg 900 mg PO ONCE PM 09/17/23 09/17/23 History tablet,extended release losartan 25 mg tablet 12.5 mg PO DAILY 09/17/23 09/17/23 History melatonin 5 mg tablet 5 mg PO ONCE PM PRN insomnia 09/17/23 09/17/23 History olanzapine 10 mg tablet 10 mg PO ONCE PM 09/17/23 09/17/23 History sennosides 8.6 mg tablet (senna) 17.2 mg PO BID 09/17/23 09/17/23 History Allergies Allergy/AdvReac Type Severity Reaction Status Date / Time egg Allergy Verified 09/17/23 10:52 Review of Systems Review of Systems Narrative: All other systems reviewed with the patient and are negative unless otherwise stated. Exam Vital Signs (past 8 hours): - 09/17/23 10:46 09/17/23 14:13 09/17/23 14:15 Temperature 98.0 F Pulse Rate 50 L 49 L Respiratory Rate 18 22 Blood Pressure 92/46 L 132/64 Pulse Oximetry 98 98 Oxygen Delivery Method Room Air 09/17/23 14:15 09/17/23 14:55 09/17/23 14:56 Temperature Pulse Rate 52 L 53 L Respiratory Rate 20 Blood Pressure Pulse Oximetry 98 100 100 Oxygen Delivery Method 09/17/23 14:56 09/17/23 15:00 09/17/23 15:01 Temperature Pulse Rate 49 L Respiratory Rate Blood Pressure 169/90 H 182/83 H Pulse Oximetry 98 Oxygen Delivery Method 09/17/23 15:01 09/17/23 15:30 09/17/23 15:31 Temperature Pulse Rate 47 L 50 L Respiratory Rate 24 Blood Pressure 133/63 Pulse Oximetry 98 98 Oxygen Delivery Method 09/17/23 15:31 09/17/23 16:00 09/17/23 16:00 Temperature Pulse Rate 46 L 65 Respiratory Rate 20 Blood Pressure 143/93 H Pulse Oximetry 99 99 Oxygen Delivery Method 09/17/23 16:30 09/17/23 16:30 Temperature Pulse Rate 44 L Respiratory Rate 21 Blood Pressure 141/62 H Pulse Oximetry 98 Oxygen Delivery Method Oxygen Delivery Method Room Air Narrative Exam Narrative: General:? Patient is well developed and well nourished, in no distress at this time. HEENT:? Normocephalic, atraumatic, extraocular muscles intact, oral pharynx is clear and mucous membranes are moist. Neck: supple and symmetric, trachea is midline, no cervical adenopathy. Negative for JVD Chest:? Normal AP diameter and contour without kyphoscoliosis, no tachypnea, equal chest rise bilaterally. Lungs:? CTA b/l no wheezing rhonchi or rales. Cardio:?bradycardic rate with regular rhythm. Abdomen: S NT ND. Musculoskeletal:? Muscle strength and tone are equal within normal limits, no deformity. Extremities: No edema or joint effusions. No cyanosis or clubbing. Skin:? Pale,? Warm to touch,dry and intact without rashes, ulcerations or petechiae.? Neuro:? Alert and orientated x3,? sensation to touch intact in all extremities, no gross deficits noted of cranial nerves. She has slowed speech, difficulty finding words but no slurring. She has bilateral tremor worse in upper extremities. Psych:? Patient has a well-kept appearance, Flat affect, mental status attitude thought context and judgment are appropriate for age. Objective ECG Impression: Sinus bradycardia Labs 09/17/23 11:00 09/17/23 11:00 Labs: Laboratory Results - last 24 hr 09/17/23 09/17/23 09/17/23 11:00 12:10 13:24 WBC 6.1 RBC 3.73 L Hgb 11.8 L Hct 34.9 L MCV 93.4 MCH 31.6 MCHC 33.8 RDW 13.7 Plt Count 215 Neut % (Auto) 72.8 Lymph % (Auto) 16.0 L [place] % (Auto) 8.9 Eos % (Auto) 1.7 L Baso % (Auto) 0.6 Neut # (Auto) 4400 Lymph # (Auto) 1000 L [place] # (Auto) 500 Eos # (Auto) 100 Baso # (Auto) 0 Sodium 135 L Potassium 4.6 Chloride 108 H Carbon Dioxide 22 BUN 18 H Creatinine 0.82 Estimated GFR > 60 BUN/Creatinine Ratio 22.0 Glucose 92 Calcium 9.6 Magnesium 2.4 H Total Bilirubin 0.6 AST 47 H ALT 60 H Alkaline Phosphatase 121 Total Protein 6.9 Albumin 3.9 Globulin 3.0 Albumin/Globulin Ratio 1.3 Urine Color Yellow Urine Appearance Clear Urine pH 6.5 Ur Specific [place] <=1.005 Urine Protein Negative Urine Glucose (UA) Negative Urine Ketones Negative Urine Occult Blood Negative Urine Nitrate Negative Urine Bilirubin Negative Urine Urobilinogen 1.0 Ur Leukocyte Esterase Negative Urine RBC None seen Urine WBC None seen Ur Squamous Epith Cells 0-1 /hpf Urine Bacteria None seen Ur Culture Indicated? Cult not indicated Salicylates < 1.0 U Opiates 300ng/mL cut Negative Ur Oxycodone Screen Negative Urine Methadone Screen Negative Ur Barbiturates Screen Negative U Tricyclic Antidepress Negative Ur Phencyclidine Scrn Negative Ur Amphetamines Screen Negative U Methamphetamines Scrn Negative Ur MDMA Scrn (Ecstasy) Negative U Benzodiazepines Scrn Negative [place] 1.5 H Urine Cocaine Screen Negative U Marijuana (THC) Screen Negative Ethyl Alcohol < 10 PFSH Medical History (Updated 09/17/23 @ 18:13 by Ab Scott DO) Chronic anticoagulation HTN (hypertension) Bipolar 1 disorder Tobacco & Substance Use Smoking Status: Former smoker Assessment & Plan Assessment & Plan narrative: 1. [place] toxicity, with PMH of late onset schizophrenia or late onset bipolar disorder with recent suicidal ideation. - Li level 1.5. Discussed with psychiatry provider here whom stated presentation is likely due to lithium toxicity. Recommended holding lithium, starting fluids, and checking lithium levels again until <1.0. With limited availability of psychiatry at [facility] (not available on weekends, evenings, and limited day availability as there is only one provider and also have an overbooked clinic) and this patient's recent psychiatric admission, our psychiatry provider recommended a center with additional access to psychiatry while her lithium is tapered off, as it is highly possible that she may have return of symptoms. - patient's history is also additionally complicated by possibly underlying parkinsonism, she is also on benztropine and neurology consultation may be of benefit as well, though this may be done as an outpatient. - MRI negative for acute infarcts, and CT head and CTA were unremarkable. - continue IV fluids, check lithium levels frequently. - more information is needed and patient would ideally benefit from a neuropsychiatric evaluation as both may be contributing to her recent issues. 2. HTN - losartan 12.5 mg daily 3. Chronic anticoagulation - unclear as to why patient is on chronic anticoagulation at this time. Code: Full, surrogate is patient's sister DVT: on apixaban I have utilized all available immediate resources to obtain, update, or review the patient's current medications. Dispo: recommend transfer to a center with more readily available psychiatry given her recent complicated history and likelihood of recurrence of psychosis with cessation of lithium. PCP: ABRAM roblero
--- NOTE | 2023-09-17 18:17 | PC.NURSE ---
Pt took her home eliquis, zyprexa, and benztropine with Dr. Louis's okay
[2023-09-17] MEDS: APIXABAN 5 MG TABLET 2.5 MG PO (20:38)
[2023-09-17] MEDS: OLANZapine 2.5 MG TABLET 10 MG PO (20:41)
[2023-09-18] VITALS (41 sets, daily range): BP systolic 76–150; BP diastolic 43–70; PULSE 44–90; RESP 11–31; TEMP 36.7–36.9; O2SAT 96–97
--- NOTE | 2023-09-18 01:31 | PC.NURSE ---
Repeat VS noted. Dr. Louis made aware & to bedside to re-examine/ evaluate. BP cuff placed on opposite arm & BP rechecked & noted.
--- NOTE | 2023-09-18 04:33 | PC.NURSE ---
ROUNDHOUSE SUPERVISOR note: Spoke to Micheline (beam house inspector) at [facility] regarding a transfer. Sent over doctors note to house supervisior. She reviewed the case and said patient needed a PCC bed, and they only had med surg beds, but to check again in the morning. Told doctor and nurses.
[2023-09-18 07:55] LABS: Add Manual Diff / Slide Review NO; Basophils Absolute Auto 0 /uL (0-100); Basophils Percent Auto 0.7 % (0-2); Eosinophils Absolute Auto 100 /uL (0-450); Eosinophils Percent Auto 2.5 % (2-4); Hematocrit 34.2 % (36-46); Hemoglobin 11.5 g/dL (12.0-16.0); Lymphocytes Absolute Auto 1400 /uL (1100-4500); Lymphocytes Percent Auto 24.2 % (25-40); Mean Corpuscular HGB Conc 33.7 % (30-36); Mean Corpuscular Hemoglobin 31.7 PG (26-34); Monocytes Absolute Auto 500 /uL (0-900); Monocytes Percent Auto 9.5 % (3-14); Neutrophils Absolute Auto 3600 /uL (1500-7000); Neutrophils Percent Auto 63.1 % (50-75); Platelet Count 204 X10^3/uL (150-400); Red Blood Cell Count 3.64 X10^6/uL (4.0-5.2); Red Cell Distribution Width 14.3 % (11.6-14.8); White Blood Cell Count 5.7 X10^3/uL (4.5-11.0)
[2023-09-18] MEDS: CITALOPRAM 10 MG TABLET 20 MG PO (08:03)
[2023-09-18] MEDS: APIXABAN 5 MG TABLET 2.5 MG PO ×2 (08:03→22:15)
[2023-09-18] MEDS: ATORVASTATIN 20 MG TABLET 5 MG PO (08:03)
[2023-09-18 08:07] LABS: Alanine Aminotransferase 52 IU/L (<35); Albumin 3.5 g/dL (3.5-5.0); Albumin Globulin Ratio 1.3 (1.0-2.8); Alkaline Phosphatase 124 U/L (38-126); Aspartate Aminotransferase 38 IU/L (14-36); BUN Creatinine Ratio 17.1 (6-22); Bilirubin Total 0.7 mg/dL (0.2-1.3); Blood Urea Nitrogen 14 mg/dL (7-17); Calcium 9.3 mg/dL (8.4-10.2); Carbon Dioxide 22 mmol/L (22-32); Chloride 111 mmol/L (98-107); Estimated Glomerular Filt Rate > 60 mL/min (>60); Globulin 2.8 g/dL (1.7-4.1); Glucose 104 mg/dL (80-110); HEMOLYSIS < 15 (0-50); Magnesium 2.3 mg/dL (1.6-2.3); Potassium 4.7 mmol/L (3.4-5.1); Sodium 138 mmol/L (137-145); Total Protein 6.3 g/dL (6.3-8.2)
[2023-09-18 08:09] LABS: Lithium 1.1 mmol/L (0.6-1.2)
--- NOTE | 2023-09-18 11:27 | PC.NURSE ---
Addendum entered by Marti Brar CNA 09/18/23 12:18: [id number]- [facility], spoke to Viviana, no waitlist, stated to call back later Original Note: Hospital Call List for transfer of patient 0920- [facility], recalled for update still no beds, spoke to Abelardo 0953- [facility], spoke to Anil, on waitlist 1124- [facility], spoke to Fouzia, on waitlist, no beds was stated to have a 24+ hour wait
--- NOTE | 2023-09-18 12:31 | PC.NURSE ---
Pt has been repeatedly reminded to use the call light prior to getting out of bed or ambulating to/from the bathroom. . Pt continues to attempt to get out of bed herself. Pt walked to bathroom with stand by assistance,encouraged to pull call light in the bathroom.
[2023-09-18 12:59] LABS: Creatine Kinase 47 U/L (30-135)
[2023-09-18] MEDS: THIAMINE 100 MG TABLET PO (13:28)
[2023-09-18 13:30] LABS: TSH w/ Reflex to FT4 4.07 uIU/mL (0.47-4.68)
[2023-09-18 13:49] LABS: Vitamin B12 557 pg/mL (239-931)
--- NOTE | 2023-09-18 17:21 | PC.NURSE ---
Sister - Rashida Antoine okay to call w/ updates [phone]
[2023-09-18] MEDS: SENNOSIDES 8.6 MG TABLET PO (22:15)
[2023-09-18] MEDS: OLANZapine 2.5 MG TABLET 10 MG PO (22:15)
[2023-09-19] VITALS: PULSE 50; RESP 12
[2023-09-19 01:00] VITALS: BP 147/71; PULSE 45; RESP 15
[2023-09-19 02:00] VITALS: PULSE 43; RESP 15
[2023-09-19 03:00] VITALS: PULSE 48; RESP 17
[2023-09-19 03:10] VITALS: BP 154/72; PULSE 55; RESP 18; O2SAT 98
--- NOTE | 2023-09-19 03:56 | PC.NURSE ---
She ambulated to BR and back with steady gait at 0315,alert and oriented x3,speech slow but clear,still with some difficulty finding her words.
== END 2023-09-19 03:30 | disposition short-term general hospital (02) ==
PROVIDERS: Emergency Medicine; Emergency Provider Emergency Medicine; PCP Nurse Practitioner
DX: R26.0 Ataxic gait (principal); R47.81 Slurred speech; T50.995A Adverse effect of other drugs, medicaments and biological substances, initial encounter; R29.702 NIHSS score 2
CPT/HCPCS: 36415; 70450; 70496; 70498; 70551; 80053; 80178; 80305; 80320; 80329; 81001; 82550; 82607; 83735; 84443; 85025; 93005; 99285; G0480; Q9967